=== PATIENT | male | born 1950 ===

== ENCOUNTER 2024-01-17 06:15 | Day surgery (SDC) | payer OTHER, MEDICARE ==
[~2024-01-17] VITALS: Ht 170.2 cm; Wt 115.6 kg
[2024-01-17] VITALS (11 sets, daily range): BP systolic 148–184; BP diastolic 77–82; PULSE 59–88; TEMP 97.6–98.6
[~2024-01-17 06:15] MED LIST: Famotidine 20 MG TAB PO SCH; Meclizine 25 MG TAB PO SCH; NS 1,000 ML IV SCH
--- NOTE | 2024-01-17 09:11 | NUR ---
PATIENT DID NOT BRING HIS MEDICATION LIST. I copied the list of Dr. alvarado's H&P and patient circled the medications he is currently taking and wrote when he takes his medication. Patient states he took 2 of his medications this morning. He took his Sironolactone and he thinks he took his Gabapentin.Patient states he took all of his other medications yesterday. A copy of patient's list was placed on his chart.
[2024-01-17] MEDS ORDERED: Ondansetron 4 MG/2 ML VIAL IV PRN ×2 (09:15→10:30)
[2024-01-17] MEDS ORDERED: Magnes Hydrox (MOM) 80 MG/ML 30 ML CUP PO PRN (09:15)
[2024-01-17] MEDS ORDERED: Acetaminophen 500 MG TAB PO PRN (09:15)
[2024-01-17] MEDS ORDERED: Morphine 4 MG/ML VIAL IV PRN (09:15)
[2024-01-17] MEDS ORDERED: Bisacodyl 5 MG TAB PO PRN (09:15)
[2024-01-17] MEDS ORDERED: oxyCODONE 5 MG TAB PO PRN (09:15)
[2024-01-17] MEDS ORDERED: NS 1,000 ML IV SCH (09:15)
[2024-01-17] MEDS ORDERED: Naloxone 0.4 MG/ML VIAL IV PRN (09:15)
[2024-01-17] MEDS ORDERED: Mag/Al Hydrox/Simeth Susp 30 ML CUP PO PRN (09:15)
[2024-01-17] MEDS ORDERED: Midazolam 2 MG/2 ML VIAL ONE (09:17)
[2024-01-17] MEDS ORDERED: fentaNYL 50 MCG/ML 2 ML VIAL ONE (09:17)
[2024-01-17] MEDS ORDERED: Tranexamic Acid 1,000 MG/10 ML VIAL ONE ×2 (09:35→09:38)
[2024-01-17] MEDS ORDERED: Morphine 4 MG/ML VIAL SQ ONE (09:55)
[2024-01-17] MEDS ORDERED: Thrombin Human (Recombinant) 5,000 UNITS VIAL TP ONE (09:56)
[2024-01-17] MEDS ORDERED: NS 1,000 ML IV ONE (10:12)
[2024-01-17] MEDS ORDERED: NS 10 ML IV ONE (10:12)
[2024-01-17] MEDS ORDERED: Ondansetron 4 MG/2 ML VIAL ONE (10:12)
[2024-01-17] MEDS ORDERED: dexAMETHasone 10 MG/ML VIAL ONE (10:12)
[2024-01-17] MEDS ORDERED: Lidocaine PF 2% (20 MG/ML) 5 ML VIAL ONE (10:12)
[2024-01-17] MEDS ORDERED: ePHEDrine 50 MG/ML VIAL ONE (10:16)
[2024-01-17] MEDS ORDERED: Morphine 2 MG/1 ML VIAL [PACU/SDC ONLY] IV PRN (10:30)
[2024-01-17] MEDS ORDERED: fentaNYL 50 MCG/ML 1 ML SYRINGE/VIAL [PACU/SDC ONLY] IV PRN (10:30)
[2024-01-17] MEDS ORDERED: HYDROmorphone 1 MG/1 ML SYRINGE [PACU/SDC ONLY] IV PRN (10:30)
--- NOTE | 2024-01-17 12:25 | NUR ---
Pt laying in bed. VSS. Pt's BP is elevated in 170s/90s. Pt has history of HTN and was told to hold BP meds this AM prior to surgery. A&Ox4. S1S2 with clear lungs on 1 L O2 via NC. ABD is rounded, soft, non-tender with audible bowel sounds. Palpable pulses in all extremities. Pt has some sensation in opperative leg. L knee has KENNY wrap over surgical site CDI. Hemovac drain in place with minimal drainage. Pt denies pain, n/v. Tolerating ice chips. PT reporting headache, but states this is a chronic issue. No further needs at this time call light in reach and bed alarm on.
[2024-01-17] MEDS ORDERED: NESINA12.5 PO (12:28)
[2024-01-17] MEDS ORDERED: REFRESH TEARS 330 ML OP (12:35)
[2024-01-17] MEDS ORDERED: VITAMIN D31000 IU PO (12:36)
[2024-01-17] MEDS ORDERED: AIMOVIG AU70 MG/1 M1 SQ (12:37)
[2024-01-17] MEDS ORDERED: NATURAL IRON65 MG (12:40)
[2024-01-17] MEDS ORDERED: NEURONTIN300 MG/CAP PO (12:41)
[2024-01-17] MEDS ORDERED: HYDRODIURIL50 MG PO (12:42)
[2024-01-17] MEDS ORDERED: TRESIBA FL100 UNIT/1 SQ (12:43)
[2024-01-17] MEDS ORDERED: COZAAR100 MG PO (12:44)
[2024-01-17] MEDS ORDERED: XALATAN EYE DROPS OU (12:44)
[2024-01-17] MEDS ORDERED: MOBIC15 MG PO (12:45)
[2024-01-17] MEDS ORDERED: ADALAT CC60 MG PO (12:46)
[2024-01-17] MEDS ORDERED: PROCARDIA XL 6060 MG PO (12:49)
[2024-01-17] MEDS ORDERED: ACTOS30 MG PO (12:52)
[2024-01-17] MEDS ORDERED: ZOCOR 40MG40 MG PO (12:53)
[2024-01-17] MEDS ORDERED: ALDACTONE 25MG25 M1 PO (12:54)
[2024-01-17] MEDS ORDERED: IMITREX50 MG PO (12:55)
[2024-01-17] MEDS ORDERED: ASPIRIN E.C. 8181 MG PO (12:56)
[2024-01-17] MEDS ORDERED: Acetaminophen 500 MG TAB PO SCH (13:00)
--- NOTE | 2024-01-17 13:02 | NUR ---
0718 Patient ambulatory to bay 7 with steady gait, breathing even and unlabored. Pt is alert and oriented, accompanied by his sister, Padmini. Consents reviewed and signed by the patient. IV established. LR infusion via gravity at KVO. Call light in reach. Warm blanket provided.
--- NOTE | 2024-01-17 13:07 | NUR ---
0845 Knee high fidelia hose placed on left LLE. Right knee cleansed with Chlorhexidine.
[2024-01-17] MEDS ORDERED: hydrALAZINE 20 MG/ML 1 ML VIAL IV PRN (14:15)
[2024-01-17] MEDS ORDERED: NIFEdipine XL 60 MG TAB PO SCH (14:57)
[2024-01-17] MEDS ORDERED: Losartan 50 MG TAB PO SCH (14:58)
--- NOTE | 2024-01-17 14:59 | NUR ---
Pt reporting fullness and discomfort in lower ABD/pelvic area. Pt denies urge to urinate. Will bladder scan.
[2024-01-17] MEDS ORDERED: SUMAtriptan 25 MG TAB PO PRN ×2 (15:00→17:45)
[2024-01-17] MEDS ORDERED: Ketorolac 15 MG/ML VIAL IV SCH (15:00)
[2024-01-17] MEDS ORDERED: Dextrose 50% Water 25 GM/50 ML SYRINGE IV PRN (15:30)
[2024-01-17] MEDS ORDERED: Dextrose (Glucose) 15 GM (4 x 3.75 GM) Chewable TABLET PACK PO PRN (15:30)
[2024-01-17] MEDS ORDERED: Glucagon 1 MG VIAL IM PRN (15:30)
--- NOTE | 2024-01-17 15:39 | NUR ---
Bladder scan said >500. Straight cathed Pt - 825 cc of clear, yellow urine. Pt reported distention and pressure was relieved.
[2024-01-17] MEDS ORDERED: ceFAZolin 2 G in Water For Injection,Sterile 20 ML IV SCH (16:00)
[2024-01-17 16:29] LABS: HEMATOCRIT 48.7 % (42.0-52.0); HEMOGLOBIN 17.2 g/dl (13.5-18.0); MEAN CELL VOLUME 89 fl (80.0-100.0); MEAN CORPUSCULAR HEMOGLOBIN 31 pg (27-31); MEAN CORPUSCULAR HGB CONC 35 g/dl (33.0-37.0); MEAN PLATELET VOLUME 10.2 fl (7.4-10.4); PLATELET COUNT 166 K/mm3 (130-400); REDCELL DISTRIBUTION WIDTH-CV 13.1 % (11.5-14.5)
[2024-01-17 16:50] LABS: ALBUMIN 3.6 g/dL (3.4-4.8); BAND 5 % (0-10); BILIRUBIN,TOTAL 0.5 mg/dL (0.2-1.2); CALCIUM 8.8 mg/dL (8.4-10.2); CREATININE, serum 1.5 mg/dL (0.72-1.25); EOSINOPHIL 1 % (0-4); LYMPHOCYTE 5 % (20.0-51.0); NEUTROPHILS 88 % (42.0-75.2); POTASSIUM 3.7 mEq/L (3.5-4.5); TOTAL PROTEIN 6.4 g/dl (6.2-8.1)
[2024-01-17 16:51] LABS: ANISOCYTOSIS 1+; PLATELET ESTIMATE NORMAL (NORMAL)
[2024-01-17] MEDS ORDERED: Insulin Lispro (HumaLOG) SQ SCH (17:00)
--- NOTE | 2024-01-17 20:00 | NUR ---
PATIENT IS A&O. VSS. C/O ROSEN AND REPORTING HE HAS BEEN STRUGGLING WITH ROSEN AT HOME. GAVE PRN IMITREX PER PATIENT REQUEST WITH HS MED[facility]. NO C/O N/V. ADA DIET. BS OF 86, NO SSI REQUIRED, GAVE SCHEDULED LONG ACTING. IV FLUIDS INFUSING VIA PUMP INTO RIGHT FORARM IV. DAY SHIFT REPORTED PATIENT UNABLE TO VOID AND WAS STRAIGHT CATHED FOR OVER 800CC, URINAL AT BEDSIDE, WILL MONITOR OUTPUT. LTK DRESSING IS CD&I WITH BULKY ACEWRAP. HEMOVAC TO LLE TO COMPRESSION WITH SMALL AMOUNTS OF BLOODY DRAINAGE NOTED. HEAD TO TOE ASSESSMENT COMPLETE. PATIENT REQUESTING A FAN, GIVEN BY HOUSE. NO OTHER NEEDS AT THIS TIME. CALL LIGHT IN REACH.
[2024-01-17] MEDS ORDERED: Ascorbic Acid 500 MG TAB PO SCH (21:00)
[2024-01-17] MEDS ORDERED: Atorvastatin 20 MG TAB PO SCH (21:00)
[2024-01-17] MEDS ORDERED: Sennosides/Docusate 8.6-50 MG TAB PO SCH (21:00)
[2024-01-17] MEDS ORDERED: Gabapentin 300 MG CAP PO SCH (21:00)
[2024-01-17] MEDS ORDERED: Simvastatin 40 MG **** subs to Atorvastatin 20 MG PO SCH (21:00)
[2024-01-17] MEDS ORDERED: Latanoprost 0.005% Ophth Soln 2.5 ML BOTTLE OP SCH (21:00)
[2024-01-17] MEDS ORDERED: Insulin Glargine-ygfn (Lantus) SQ SCH (21:00)
[2024-01-18 00:12] VITALS: BP 152/89; PULSE 75; TEMP 98.3
[2024-01-18 04:32] VITALS: BP 163/75; PULSE 68; TEMP 97.9
[2024-01-18 05:00] VITALS: BP_SYST 163
[2024-01-18] MEDS ORDERED: diphenhydrAMINE 25 MG CAP PO PRN (05:00)
--- NOTE | 2024-01-18 05:00 | NUR ---
PATIENT C/O NAUSEA & ITCHING. NO EMESIS. GAVE PRN IV ZOFRAN. CALL HOSPITALIST, GAVE PRN BENADRYL, SEE MAR.
[2024-01-18 06:44] LABS: BASO % 0.1 % (0.0-2.0); GRAN # 11.5 K/mm3 (1.4-6.5); GRAN % 86.1 % (42.2-75.2); HEMATOCRIT 44.7 % (42.0-52.0); HEMOGLOBIN 15.5 g/dl (13.5-18.0); LYMPH # 0.7 K/mm3 (1.2-3.4); LYMPH % 4.9 % (20.0-51.0); MEAN CELL VOLUME 90 fl (80.0-100.0); MEAN CORPUSCULAR HEMOGLOBIN 31 pg (27-31); MEAN CORPUSCULAR HGB CONC 35 g/dl (33.0-37.0); MEAN PLATELET VOLUME 10.5 fl (7.4-10.4); MONO # 1.1 K/mm3 (0.1-0.6); MONO % 8.5 % (1.7-9.3); PLATELET COUNT 181 K/mm3 (130-400); RED BLOOD COUNT 4.98 M/mm3 (4.20-5.60); REDCELL DISTRIBUTION WIDTH-CV 13.1 % (11.5-14.5)
--- NOTE | 2024-01-18 07:01 | NUR ---
awake resting in bed, bedside shift report received from DEMOND Sanabria
[2024-01-18 07:09] LABS: CALCIUM 8.2 mg/dL (8.4-10.2); CREATININE, serum 1.48 mg/dL (0.72-1.25); POTASSIUM 3.6 mEq/L (3.5-4.5)
[2024-01-18 07:40] VITALS: BP 162/77; PULSE 67; TEMP 98.3
--- NOTE | 2024-01-18 07:40 | NUR ---
Dr Wilcox in to see patient and D/Cd hemovac drain, assisted patient out of bed and up into recliner, moves well with only minimal pain with movement, will order breakfast
--- NOTE | 2024-01-18 08:40 | NUR ---
up and ambulating out in chew with physical therapy
[2024-01-18] MEDS ORDERED: Cholecalciferol (Vit D3) 1000 Units TAB PO SCH (09:00)
[2024-01-18] MEDS ORDERED: Ferrous Sulfate 325 MG TAB PO SCH (09:00)
[2024-01-18] MEDS ORDERED: NORCO 325 MG-51 TAB PO ×2 (09:00→11:46)
[2024-01-18] MEDS ORDERED: Magnes Hydrox (MOM) 80 MG/ML 30 ML CUP PO SCH (09:00)
[2024-01-18] MEDS ORDERED: ASPIRIN 81M81 MG/TA2 PO (09:00)
[2024-01-18] MEDS ORDERED: Cephalexin 500 MG CAP PO SCH (09:00)
[2024-01-18] MEDS ORDERED: Rivaroxaban 10 MG TAB PO SCH (09:00)
--- NOTE | 2024-01-18 09:00 | NUR ---
finishing breakfast now, c/o pain 04/22 after ambulating with the rapy, medicated with roxicodone 10mg po
[2024-01-18] MEDS ORDERED: CEPHALEXIN500 M1 PO (09:01)
[2024-01-18] MEDS ORDERED: ULTRAM 50MG TAB50 MG PO ×2 (09:01→11:46)
--- NOTE | 2024-01-18 09:25 | NUR ---
D: Initial visit: Shareholder stopped by room on rounds. A: Pt was resting and content. Pt has no needs right now. P: Shareholder informed pt that if he needed anything from the compliance paralegal area to let his nurse know. Shareholder will follow up as needed.
--- NOTE | 2024-01-18 09:30 | NUR ---
occupational therapy in working with patient
--- NOTE | 2024-01-18 09:55 | NUR ---
full assessment completed, see interventions for further info
--- NOTE | 2024-01-18 11:15 | NUR ---
resting in chair, dressing to left knee removed, incision with liseth CD&I, aquacel dressing placed, drain site to left outer knee with small amount drainage, gauze with faom tape placed
[2024-01-18 11:25] VITALS: BP 161/77; PULSE 68; TEMP 98.1
--- NOTE | 2024-01-18 13:20 | NUR ---
discharge instructions given to patient and his sister, verbalizes understanding, will have therapy and call when ready to be discharge
--- NOTE | 2024-01-18 13:30 | NUR ---
physical therapy in to work with patient and assist with using stairs
--- NOTE | 2024-01-18 14:00 | NUR ---
discharged per WC
--- NOTE | 2024-01-18 15:51 | NUR ---
community health worker was notified patient needs outpatient PT scheduled. RAÚL met with patient and sister, Padmini, P# [phone] to discuss discharge planning. Patient lives in [place] by himself. PCP is [facility] in [place] with a nurse praticitioner, [place]. [facility] [address] [facility] stay but [facility] [place] [facility]. No issues affording medications. Insurance is [place] [employer] and [employer]. Patient did not have a DPOA established but was interested in completing one. RAÚL and SW Student, Cinthya, witnessed patient's signature. Patient appointed his son and daughter as his agents. SW made copies, placed copy in chart and provided original and copies to patient. DME is walker, cane and crutches. Patient reports to previously be independent with [facility] and was able to transport himself to and from appointments but will use a public transportation service to get to and from appointments after this surgery. RAÚL discussed outpatient PT services. Patient reports he previously was at [facility] physical therapy and would be interested in returning to their services but if they could not take him he would be open to anywhere closest to his home, preferrably in [place] since he shops and has other appointments there. RAÚL contacted [facility] therapy and they expressed they were booked until February. RAÚL contacted [facility] whom was [place] miles from patient's home. [facility] explained if patient has [facility] they would need to confirm patient has received authorization from the [facility] for outpatient PT. They explained they could get patient in on Wednesday at 11 am if they have authorization. . RAÚL contacted [facility]. RAÚL confirmed [facility] authorization # [id number]. The authorization was approved for 15 visits of outpatient PT. [facility] expressed they would fax the authorization to [facility]. RAÚL contacted [facility] and provided the authorization # and explained the [facility] would be faxing them as well. RAÚL provided necessary demographic information. Appointment scheduled for 01/25/24 at 11 am. RAÚL faxed discharge orders, H&P, PT evaluation and facesheet to [facility]. RAÚL met with patient and provided address, phone number and appointment date and time. RAÚL explained [facility] was booked until February. Patient expressed he was okay with going to [facility] as it was slightly closer to his home. SW was notified patient had an appointment already scheduled on 01/25/24 at 11 am. SW contacted [facility] and rescheduled appointment for 01/24/24 at 1:45 pm. RAÚL notified patient's nurse whom relayed this to patient and ensured it was written down for patient when he discharges. Discharge plan: Home with OP PT
[2024-01-21] MEDS ORDERED: Celecoxib 200 MG CAP PO SCH (21:00)
== END 2024-01-18 14:00 | disposition home or self-care (01) ==
LOC: SDCO 06:15 → SURG 12:25 → SDCO 01-18 14:00
PROVIDERS: Physician Assistant
DX: M17.12 Unilateral primary osteoarthritis, left knee (principal); E78.5 Hyperlipidemia, unspecified; I12.9 Hypertensive chronic kidney disease with stage 1 through stage 4 chronic kidney disease, or unspecified chronic kidney disease; E11.22 Type 2 diabetes mellitus with diabetic chronic kidney disease; N18.9 Chronic kidney disease, unspecified; D63.1 Anemia in chronic kidney disease; D50.9 Iron deficiency anemia, unspecified; Z86.69 Personal history of other diseases of the nervous system and sense organs; Z79.82 Long term (current) use of aspirin; Z79.4 Long term (current) use of insulin; Z79.899 Other long term (current) drug therapy
CPT/HCPCS: OP; A9284; C1713; C1776; J0360; J0690; J1100; J1580; J1815; J1885; J2250; J2270; J2405; J2704; J2795; J3010; J7030